=== PATIENT | female | born 1965 | race Hispanic/Latino ===

== ENCOUNTER 2017-04-07 06:22 | Observation (INO) | payer OTHER, MEDICARE ==
[2017-04-07] MEDS ORDERED: Sodium Chloride 0.9% 500 ML IV STA (07:37)
--- NOTE | 2017-04-07 07:46 | ED PDOC ---
HPI: General Adult Time Seen by Provider: 04/07/17 07:21 Chief Complaint (Nursing): Pain, Chronic Chief Complaint (Provider): Chronic RSD evaluation History Per: Patient History/Exam Limitations: no limitations Onset/Duration Of Symptoms: Days (chronic) Additional Complaint(s): Renae Hays is a 51 year old female with a past medical history of RSD referred to the ED by Dr. Oliveira for an evaluation of chronic pain experienced to bilateral lower extremities. She states meeting Dr. Oliveira at [facility] who attempted to admit the patient into the ICU, but was unable to and therefore referred the patient to present to the ED today. The patient states she has been experiencing chronic pain to her bilateral lower extremities associated with swelling. She reports the swelling has decreased this week prior to her visit. PMD: Romaine Harrell MD Past Medical History Reviewed: Historical Data, Nursing Documentation, Vital Signs Vital Signs: Last Vital Signs Temp 98.1 F 04/07/17 06:34 Pulse 74 04/07/17 06:34 Resp 17 04/07/17 06:34 BP 120/73 04/07/17 06:34 Pulse Ox 98 04/07/17 07:49 - Medical History PMH: Anxiety Other PMH: RSD - Surgical History Surgical History: Cholecystectomy, Tonsillectomy - Family History Family History: States: No Known Family Hx - Social History Current smoker - smoking cessation education provided: No Ex-Smoker (has not smoked in the last 12 months): No Alcohol: None Drugs: Denies - Home Medications Home Medications: Ambulatory Orders Medication Instructions Recorded Alprazolam [Xanax] 0.5 mg PO Q8H 04/07/17 Aspirin [Ecotrin] 81 mg PO DAILY 04/07/17 Docusate [Colace] 250 mg PO DAILY 04/07/17 Methadone [Methadone HCl] 90 mg PO Q6H 04/07/17 Ondansetron HCl [Zofran] 8 mg PO Q8H PRN 04/07/17 Oxycodone HCl/Acetaminophen 1 tab PO Q8H 04/07/17 [Percocet 7.5-325 mg Tablet] Roxicet 15 mg PO DAILY PRN 04/07/17 Vitamin E Acetate [Vitamin E] 5,000 unit PO DAILY 04/07/17 Zolpidem [Ambien] 10 mg PO HS 04/07/17 diaZEpam [Valium] 10 mg PO Q8H 04/07/17 - Allergies Allergies/Adverse Reactions: Allergies Allergy/AdvReac Type Severity Reaction Status Date / Time amoxicillin [From Augmentin] Allergy Mild hives Verified 04/07/17 06:39 clavulanic acid Allergy Mild hives Verified 04/07/17 06:39 [From Augmentin] gabapentin [From Neurontin] Allergy Mild RASH Verified 04/07/17 06:40 hydromorphone [From Dilaudid] Allergy Mild RASH Verified 04/07/17 07:40 vancomycin Allergy Mild RASH Verified 04/07/17 06:41 morphine Allergy RASH Verified 04/07/17 07:41 Review of Systems ROS Statement: Except As Marked, All Systems Reviewed And Found Negative Musculoskeletal: Positive for: Leg Pain (bilateral lower extremity pain and swelling) Physical Exam - Reviewed Nursing Documentation Reviewed: Yes Vital Signs Reviewed: Yes - Physical Exam Appears: Positive for: Non-toxic, No Acute Distress Head Exam: Positive for: ATRAUMATIC, NORMOCEPHALIC Skin: Positive for: Normal Color, Warm, Dry Eye Exam: Positive for: Normal appearance, EOMI, PERRL ENT: Positive for: Normal ENT Inspection Neck: Positive for: Normal, Painless ROM Cardiovascular/Chest: Positive for: Regular Rate, Rhythm, Chest Non Tender Respiratory: Positive for: Normal Breath Sounds. Negative for: Respiratory Distress Gastrointestinal/Abdominal: Positive for: Normal Exam, Soft. Negative for: Tenderness Back: Positive for: Normal Inspection Extremity: Positive for: Tenderness (to bilateral lower extremities with mild touch) Neurologic/Psych: Positive for: Alert, Oriented (x3). Negative for: Motor/ Sensory Deficits - ECG O2 Sat by Pulse Oximetry: 98 (RA) Pulse Ox Interpretation: Normal Medical Decision Making Medical Decision Making: Time: 07:21 Impression: Chronic RSD evaluation Plan: * CMP * Troponin I * CBC (With differential) * Partial Thromboplastin Time * Prothrombin Time * PICC Vascular * NS 500 ml IV 100 mls/hr * Reevaluation 07:30: Spoke with Dr. Garnett. Karyn pt. admitted to ICU for ketamine infusion. 07:[address] Dejesus. Is aware and will admit patient. 0852: Spoke with Dr. Hicks. Will admit ICU. Scribe Attestation: Documented by Carmen Zamora, acting as a scribe for Venkatesh Rodriguez MD. Provider Scribe Attestation: All medical record entries made by the Scribe were at my direction and personally dictated by me. I have reviewed the chart and agree that the record accurately reflects my personal performance of the history, physical exam, medical decision making, and the department course for this patient. I have also personally directed, reviewed, and agree with the discharge instructions and disposition. Disposition - Clinical Impression Clinical Impression: Chronic pain - Patient ED Disposition Is Patient to be Admitted: Yes - Disposition Disposition Time: 08:52 Condition: FAIR - Pt Status Changed To: Hospital Disposition Of: Inpatient - Admit Certification Admit to Inpatient:: After my assessment, the patient will require hospitalization for at least two midnights. This is because of the severity of symptoms shown, intensity of services needed, and/or the medical risk in this patient being treated as an outpatient. - POA Present On Arrival: None
--- NOTE | 2017-04-07 09:10 | PCM.SURG1 ---
Surgeon's Initial Post Op Note - Surgeon's Notes Surgeon: Kolby Camarillo MD Station Captain: NONE Type of Anesthesia: Local Pre-Operative Diagnosis: Poor venous access Operative Findings: Patent right basilic vein. Post-Operative Diagnosis: Poor venous access Operation Performed: Single lumen picc placement, right basilic vein, 35 cm. Tip is in the SVC. Specimen/Specimens Removed: None Estimated Blood Loss: EBL {In ML}: 2 Blood Products Given: N/A Drains Used: No Drains Post-Op Condition: Fair Date of Surgery/Procedure: 04/07/17 Time of Surgery/Procedure: 09:25
[2017-04-07] MEDS ORDERED: Lidocaine 1% Inj (20ml) ONE (09:13)
[2017-04-07] MEDS ORDERED: Iodixanol 320 mg/ml 50 ml Sol IV ONE ×2 (09:27→09:30)
[2017-04-07 10:38] LABS: BASO % 0.6 % (0.0-2.0); EOS # 0.2 K/uL (0.0-0.7); EOS % 2.7 % (0.0-4.0); HEMATOCRIT 36.3 % (34.0-47.0); LYMPH # 2.6 K/uL (1.0-4.3); LYMPH % 43.5 % (20.0-40.0); MEAN CELL VOLUME 84.2 fl (81.0-99.0); MEAN CORPUSCULAR HEMOGLOBIN 27.1 pg (27.0-31.0); MEAN CORPUSCULAR HGB CONC 32.2 g/dL (33.0-37.0); MEAN PLATELET VOLUME 7.9 fl (7.2-11.7); MONO # 0.7 K/uL (0.0-0.8); NEUT # 2.4 K/uL (1.8-7.0); NEUT % 41.2 % (50.0-75.0); RED CELL DISTRIBUTION WIDTH 14.9 % (11.5-14.5); WHITE BLOOD COUNT 5.9 K/uL (4.8-10.8)
[2017-04-07 10:45] LABS: ALB/GLOB RATIO 1.3 (1.0-2.1); ALKALINE PHOSPHATASE 105 U/L (38-126); ALT/SGPT 36 U/L (9-52); AST/SGOT 44 U/L (14-36); BILIRUBIN,TOTAL 0.4 mg/dl (0.2-1.3); BLOOD UREA NITROGEN 9 mg/dl (7-17); CALCIUM 8.8 mg/dL (8.4-10.2); CARBON DIOXIDE 31 mmol/L (22-30); CHLORIDE 103 mmol/L (98-107); GFR AFRICAN-AMERICAN > 60; GLUCOSE,RANDOM 79 mg/dL (65-105); PARTIAL THROMBOPLASTIN TIME 29.6 Seconds (25.6-37.1); POTASSIUM 3.8 MMOL/L (3.6-5.0); SODIUM 141 mmol/l (132-148); TOTAL PROTEIN 6.5 G/DL (6.3-8.2)
[2017-04-07] MEDS ORDERED: Ketamine 50 mg/ml Inj (10 ml) IV ONE (10:45)
--- NOTE | 2017-04-07 13:01 | CP.PCM.CON ---
History of Present Illness - History of Present Illness History of Present Illness: Mrs. Hays is a 51-year-old woman with a past medical history of multiple spinal surgeries and peripheral orthopedic surgeries as a result of a previous injury, who subsequently developed complex regional pain syndrome type 1 (CRPS-1). She has been sustained on methadone, multiple doses of IR opiates and benzodiazepines to control her pain. She had an attack of CRPS about two weeks ago and now has difficulty with ambulation and straightening her back. She complains of severe pain and would like to avoid using high dose opiates due to concern for respiratory suppression. Review of Systems - Review of Systems All systems: reviewed and no additional remarkable complaints except Past Patient History - Past Social History Alcohol: None Drugs: Denies - NEUROLOGICAL Hx Neurological Disorder: Yes - MUSCULOSKELETAL/RHEUMATOLOGICAL Hx Musculoskeletal Disorders: Yes - PSYCHIATRIC Hx Anxiety: Yes - SURGICAL HISTORY Hx Cholecystectomy: Yes Hx Tonsillectomy: Yes Meds Allergies/Adverse Reactions: Allergies Allergy/AdvReac Type Severity Reaction Status Date / Time amoxicillin [From Augmentin] Allergy Mild hives Verified 04/07/17 06:39 clavulanic acid Allergy Mild hives Verified 04/07/17 06:39 [From Augmentin] gabapentin [From Neurontin] Allergy Mild RASH Verified 04/07/17 06:40 vancomycin Allergy Mild RASH Verified 04/07/17 06:41 morphine Allergy RASH Verified 04/07/17 07:41 - Medications Medications: Current Medications Ketamine HCl 100 mg/ Sodium (Chloride) 102 mls @ 3.29 mls/hr IVPB ONCE ONE Stop: 04/08/17 18:00 Last Admin: 04/07/17 12:05 Dose: 3.29 mls/hr Physical Exam - Constitutional Appears: Well - Head Exam Head Exam: ATRAUMATIC, NORMAL INSPECTION, NORMOCEPHALIC - Eye Exam Eye Exam: EOMI, Normal appearance, PERRL - ENT Exam ENT Exam: Mucous Membranes Moist, Normal Exam - Neck Exam Neck exam: Positive for: Normal Inspection - Respiratory Exam Respiratory Exam: NORMAL BREATHING PATTERN - Cardiovascular Exam Cardiovascular Exam: REGULAR RHYTHM, +S1, +S2 - GI/Abdominal Exam GI & Abdominal Exam: Normal Bowel Sounds, Soft. absent: Tenderness - Rectal Exam Rectal Exam: Deferred - Extremities Exam Extremities exam: Positive for: calf tenderness, joint swelling, pedal edema, tenderness - Neurological Exam Neurological exam: Abnormal Gait, Alert, CN II-XII Intact, Oriented x3, Reflexes Normal - Expanded Neurological Exam Expanded Patient oriented to: person, place, time Cranial nerves: EOM's Intact: Normal, Facial Palsey w/o Forehead Movement: Normal, Nystagmus: Normal Ataxia: No Cerebellar Function: Finger to Nose: Normal, Heel to Lin: Abnormal Left, Abnormal Right (limited by pain) Upper motor neuron: Babinski Sign: Normal Sensory exam: Lower Extremity Light Touch: Abnormal Left, Abnormal Right ( allodynia), Lower Extremity Pin Prick: Abnormal Left, Abnormal Right (allodynia) , Upper Extremity Light Touch: Abnormal Left, Abnormal Right (allodynia), Upper Extremity Pin Prick: Abnormal Left, Abnormal Right (allodynia) Neuro motor strength exam: Left Upper Extremity: 5, Right Upper Extremity: 5, Left Lower Extremity: 4, Right Lower Extremity: 4 DTR: Bicep Left: 2+, Bicep Right: 2+, Patellar Left: 2+, Patellar Right: 2+ - Psychiatric Exam Psychiatric exam: Normal Affect, Normal Mood - Skin Skin Exam: Erythema Results - Vital Signs Recent Vital Signs: Last Vital Signs Temp 98.0 F 04/07/17 12:00 Pulse 62 04/07/17 12:52 Resp 13 04/07/17 12:52 BP 136/69 04/07/17 12:52 Pulse Ox 94 L 04/07/17 12:52 - Labs Result Diagrams: 04/07/17 10:30 04/07/17 10:30 Labs: Laboratory Results - last 24 hr 04/07/17 04/07/17 04/07/17 10:30 10:30 10:30 WBC 5.9 RBC 4.30 Hgb 11.7 L Hct 36.3 MCV 84.2 MCH 27.1 MCHC 32.2 L RDW 14.9 H Plt Count 232 MPV 7.9 Neut % (Auto) 41.2 L Lymph % (Auto) 43.5 H [place] % (Auto) 12.0 H Eos % (Auto) 2.7 Baso % (Auto) 0.6 Neut # 2.4 Lymph # 2.6 [place] # 0.7 Eos # 0.2 Baso # 0.0 PT 10.9 INR 1.0 APTT 29.6 Sodium 141 Potassium 3.8 Chloride 103 Carbon Dioxide 31 H Anion Gap 11 BUN 9 Creatinine 0.8 Est GFR ( Amer) > 60 Est GFR (Non-Af Amer) > 60 Random Glucose 79 Calcium 8.8 Total Bilirubin 0.4 AST 44 H ALT 36 Alkaline Phosphatase 105 Troponin I < 0.0120 Total Protein 6.5 Albumin 3.7 Globulin 2.8 Albumin/Globulin Ratio 1.3 Assessment & Plan (1) Complex regional pain syndrome i of lower limb, bilateral Assessment and Plan: Will start Ketamine infusion at 0.25 mg/kg/hour and titrate up as tolerated without exceeding 1 mg/kg/hour to treat her severe pain. Will attempt to decrease her current opiates. Neuro-check Q1 hours. Fluids, DVT Px. Status: Acute
--- NOTE | 2017-04-07 13:17 | CP.PCM.HP ---
History of Present Illness - History of Present Illness History of Present Illness: CC: Acute Lower Extremities pain. 51 y/o F, with Dx of CRPD stage 1, referred by Dr Oliveira, Neurology, to [facility] to be evaluated for increased chronic pain in her lower extremities for several days, Pt using Oxycodone at home with no relief. Pt was admitted to ICU to be treated with Ketamine infusion. Pt appear to hospital with exacerbation of chronic pain BLE , pain is of severe intensity 8:10, with burning sensation and swelling, 2nd to multiple orthopedic surgeries (43, stated by PT), from injury/trauma. Worsening symptoms of Lower back pain of moderate intensity 6:10 radiated to thigh. Aggravated factor: Difficulty ambulation and straightening of her back. Pt denied: Fever, chills, n/v/d, abdominal pain, urinary symptoms, CP, palpitation, SOB, cough, dizziness, LOC, syncope, sick contact, recent travel. PMHx: CRPD stage 1 2nd to: B/L foot reconstruction, 14 knee surgeries including 3 L TKR, 1 R THR, Lumbar sx 13 times, 2 L shoulder and 1 R shoulder sx. Also Hx of Lab Ramón; Gastric bypass 2012. Hx of Constipation, Anxiety, Insomnia. Present on Admission - Present on Admission Any Indicators Present on Admission: No Review of Systems - Constitutional Constitutional: Other (negative) - EENT Eyes: Other (negative) Ears: Other (negative) Nose/Mouth/Throat: Other (negative) - Cardiovascular Cardiovascular: Leg Edema - Respiratory Respiratory: Other (negative) - Gastrointestinal Gastrointestinal: Other (negative) - Genitourinary Genitourinary: Other (negative) - Musculoskeletal Musculoskeletal: As Per HPI, Back Pain, Radiating Pain into Limb - Integumentary Integumentary: Swelling (Lower extremities) - Neurological Neurological: Other (negative) - Psychiatric Psychiatric: Anxiety - Endocrine Endocrine: Other (negative) - Hematologic/Lymphatic Hematologic: Other (negative) Past Patient History - Past Medical History & Family History Pertinent Family History: Unknown - Past Social History Smoking Status: Never Smoked Alcohol: None Drugs: Denies Home Situation {Lives}: With Family - CARDIAC Hx Cardiac Disorders: No - PULMONARY Hx Respiratory Disorders: No - NEUROLOGICAL Hx Neurological Disorder: No - HEENT Hx HEENT Problems: No - RENAL Hx Chronic Kidney Disease: No - ENDOCRINE/METABOLIC Hx Endocrine Disorders: No - HEMATOLOGICAL/ONCOLOGICAL Hx Blood Disorders: No - INTEGUMENTARY Hx Dermatological Problems: No - MUSCULOSKELETAL/RHEUMATOLOGICAL Hx Musculoskeletal Disorders: Yes (CRPD from orthopedic sx.) Hx Back Pain: Yes - GASTROINTESTINAL Hx Clostridium Difficile: No - GENITOURINARY/GYNECOLOGICAL Hx Genitourinary Disorders: No - PSYCHIATRIC Hx Psychophysiologic Disorder: Yes (Insomnia.) Hx Anxiety: Yes - SURGICAL HISTORY Hx Surgeries: Yes Hx Cholecystectomy: Yes Hx Gastric Bypass Surgery: Yes Hx Joint Replacement: Yes (L Knee, R Hip) Hx Orthopedic Surgery: Yes (L knee, R hip, shoulders b/l, foot b/l, ) Hx Tonsillectomy: Yes - ANESTHESIA Hx Anesthesia: Yes Hx Anesthesia Reactions: No Meds Allergies/Adverse Reactions: Allergies Allergy/AdvReac Type Severity Reaction Status Date / Time amoxicillin [From Augmentin] Allergy Mild hives Verified 04/07/17 06:39 clavulanic acid Allergy Mild hives Verified 04/07/17 06:39 [From Augmentin] gabapentin [From Neurontin] Allergy Mild RASH Verified 04/07/17 06:40 vancomycin Allergy Mild RASH Verified 04/07/17 06:41 morphine Allergy RASH Verified 04/07/17 07:41 Physical Exam - Constitutional Appears: No Acute Distress - Head Exam Head Exam: NORMAL INSPECTION - Eye Exam Eye Exam: PERRL - ENT Exam ENT Exam: Normal Exam - Neck Exam Neck exam: Positive for: Normal Inspection - Respiratory Exam Respiratory Exam: Clear to Auscultation Bilateral - Cardiovascular Exam Cardiovascular Exam: REGULAR RHYTHM - GI/Abdominal Exam GI & Abdominal Exam: Normal Bowel Sounds, Soft - Extremities Exam Extremities exam: Positive for: pedal edema, tenderness (very tenderness on touch to b/l lower extremities.) Additional comments: R Arm PICC line. Healed scar: b/l foot, L knee, R hip. - Back Exam Back exam: NORMAL INSPECTION - Neurological Exam Neurological exam: Alert, Oriented x3 - Psychiatric Exam Psychiatric exam: Anxious - Skin Skin Exam: Warm Results - Vital Signs Recent Vital Signs: Last Vital Signs Temp 98.0 F 04/07/17 12:00 Pulse 62 04/07/17 12:52 Resp 13 04/07/17 12:52 BP 136/69 04/07/17 12:52 Pulse Ox 94 L 04/07/17 12:52 reviewed J.P. - Labs Result Diagrams: 04/07/17 10:30 04/07/17 10:30 Labs: Laboratory Results - last 24 hr 04/07/17 04/07/17 04/07/17 10:30 10:30 10:30 WBC 5.9 RBC 4.30 Hgb 11.7 L Hct 36.3 MCV 84.2 MCH 27.1 MCHC 32.2 L RDW 14.9 H Plt Count 232 MPV 7.9 Neut % (Auto) 41.2 L Lymph % (Auto) 43.5 H [place] % (Auto) 12.0 H Eos % (Auto) 2.7 Baso % (Auto) 0.6 Neut # 2.4 Lymph # 2.6 [place] # 0.7 Eos # 0.2 Baso # 0.0 PT 10.9 INR 1.0 APTT 29.6 Sodium 141 Potassium 3.8 Chloride 103 Carbon Dioxide 31 H Anion Gap 11 BUN 9 Creatinine 0.8 Est GFR ( Amer) > 60 Est GFR (Non-Af Amer) > 60 Random Glucose 79 Calcium 8.8 Total Bilirubin 0.4 AST 44 H ALT 36 Alkaline Phosphatase 105 Troponin I < 0.0120 Total Protein 6.5 Albumin 3.7 Globulin 2.8 Albumin/Globulin Ratio 1.3 reviewed J.P. Assessment & Plan (1) Complex regional pain syndrome i of lower limb, bilateral Status: Acute Priority: High (2) Controlled drug dependence Status: Acute Priority: High - Assessment and Plan (Free Text) Plan: EKG, CXR, Pt on Methadone, for Ketamine infusion today. ICU time: 60 minutes. - Date & Time Date: 04/07/17 Time: 11:00
--- NOTE | 2017-04-07 13:40 | VASCULAR ---
PROCEDURE: Date of procedure: 04/07/2017 Procedure: 1. Placement of a right arm PICC with ultrasound and fluoroscopic guidance, CPT 42029 2. PICC tip confirmation with spot radiograph and is in the superior vena cava Medications: 1 percent lidocaine Total Fluoro time: 20.1 seconds Radiation: 1.40 MGy EBL: 2 cc HISTORY: Poor venous access TECHNIQUE: Following informed consent and procedure time-out, the patient was placed supine on the interventional table and the right arm prepped and draped in the usual sterile fashion. Ultrasound showed a patent and compressible right basilic vein. After the skin was anesthetized with lidocaine, the basilic vein was accessed with micro micropuncture technique using ultrasound guidance. A guidewire was then advanced under fluoroscopic guidance into the superior vena cava. An image documenting ultrasound guidance for vascular access was permanently saved. The length of the single-lumen 4 [place] PICC was trimmed to 35 centimeters and advanced through a peel-away sheath. The PICC was position with tip of PICC confirm a spot radiograph the superior vena cava. The PICC was secured to the patient's skin. The PICC was flushed. A biopatch and sterile dressing was applied. IMPRESSION: Placement of a single-lumen 4 [place] PICC trimmed to 35 centimeters via right basilic vein. The tip of the PICC is confirmed with spot radiograph and is in the superior vena cava.
--- NOTE | 2017-04-07 14:31 | CP.CCUPN ---
CCU Subjective - Physician Review Subjective (Free Text): ICU admission and consultation: 51F with PMH of multiple complex surgeries (Total 43) involving LS spine, Knees and Left Hip resulting in residual chronic pain syndrome, RSD, and now dependent on multiple narcotic analgesics and has persistent pain issues, seen by Neurology and admitted to ICU for trial of IV Ketamine therapy in an attempt to treat and alleviate present pain episodes and to decrease narcotic usage / dependency. Single-Lumen RUE PICC placed by IR to facilitate IV ketamine infusion to poor peripheral IV access. Other vitals and I/O's reviewed. ALLERGIES: Pen, Amoxil with clavulanate, Vanco, Gabapentin, Morphine Home meds: Xanax, ASA, Colace, Methadone, Percocet, Roxicet, Ambien ROS: No other pertinent negs or positives on 10+ system review. PMSFH: All Nursing and physician documentation reviewed to date; no new pertinent info noted relevant to current medical problems. EKG: none CXR: none MAJOR PROBLEMS: 1. Chronic Pain syndrome due to multiple past surgical procedures 2. Narcotic / Opiate dependency PLAN: 1. IV Ketamine protocol as per Neurology at approx. 10-25% of anesthetic Ketamine dose level. Initial ordered dose of 20mg IV infusion over a 4-6 hour period. 2. Telemetry monitoring appropriate for now, unless ongoing co-administration of outpatient narcotic regimen is considered, then this would prompt upgrade to ICU to monitor airway and hemodynamics. Also monitor for any deleterious euphoric effects from Ketamine. CCU Objective - Vital Signs / Intake & Output Vital Signs (Last 4 hours): Vital Signs Temp Pulse Resp BP Pulse Ox 04/07/17 12:52 62 13 136/69 94 L 04/07/17 12:00 98.0 F 77 14 136/69 95 04/07/17 10:51 98.1 F 71 17 137/84 98 Intake and Output (Last 8hrs): Intake & Output 04/06/17 04/07/17 04/07/17 22:59 06:59 14:59 Weight 174 lb - Physical Exam Head: Positive for: Normocephalic Pupils: Positive for: PERRL Extroacular Muscles: Positive for: EOMI Conjunctiva: Positive for: Normal. Negative for: Icteric Mouth: Positive for: Moist Mucous Membranes Neck: Negative for: JVD, Lymphadenopathy Respiratory/Chest: Positive for: Clear to Auscultation Cardiovascular: Positive for: Regular Rate and Rhythm. Negative for: Murmurs, Rub Abdomen: Positive for: Normal Bowel Sounds. Negative for: Tenderness, Distention Upper Extremity: Positive for: Edema Lower Extremity: Positive for: Edema, NORMAL PULSES. Negative for: CALF TENDERNESS, Cyanosis Neurological: Positive for: GCS=15, CN II-XII Intact, Motor Func Grossly Intact , Normal Sensory Function Skin: Positive for: Warm. Negative for: Rashes - Medications Active Medications: Active Medications Generic Name Dose Route Start Last Admin Trade Name Freq PRN Reason Stop Dose Admin Aspirin 81 mg 04/07/17 13:15 Ecotrin PO DAILY ANTHONY Diazepam 2 mg 04/07/17 13:02 Valium PO TID PRN Anxiety Ketamine HCl 100 mg/ Sodium 102 mls @ 3.29 mls/hr 04/07/17 11:00 04/07/17 12: 05 Chloride IVPB 04/08/17 18:00 3.29 mls/hr ONCE ONE Administration Methadone HCl 10 mg 04/07/17 17:00 Methadone PO Q8 ANTHONY Oxycodone/Acetaminophen 1 tab 04/07/17 13:02 Percocet 5/325 Mg Tab PO 04/10/17 13:03 Q6 PRN breakthrough pain - Patient Studies Lab Studies: Lab Studies 04/07/17 04/07/17 04/07/17 Range/Units 10:30 10:30 10:30 WBC 5.9 (4.8-10.8) K/uL RBC 4.30 (3.80-5.20) Mil/uL Hgb 11.7 L (12.0-16.0) g/dL Hct 36.3 (34.0-47.0) % MCV 84.2 (81.0-99.0) fl MCH 27.1 (27.0-31.0) pg MCHC 32.2 L (33.0-37.0) g/dL RDW 14.9 H (11.5-14.5) % Plt Count 232 (130-400) K/uL MPV 7.9 (7.2-11.7) fl Neut % (Auto) 41.2 L (50.0-75.0) % Lymph % (Auto) 43.5 H (20.0-40.0) % [place] % (Auto) 12.0 H (0.0-10.0) % Eos % (Auto) 2.7 (0.0-4.0) % Baso % (Auto) 0.6 (0.0-2.0) % Neut # 2.4 (1.8-7.0) K/uL Lymph # 2.6 (1.0-4.3) K/uL [place] # 0.7 (0.0-0.8) K/uL Eos # 0.2 (0.0-0.7) K/uL Baso # 0.0 (0.0-0.2) K/uL PT 10.9 (9.8-13.1) Seconds INR 1.0 (0.9-1.2) APTT 29.6 (25.6-37.1) Seconds Sodium 141 (132-148) mmol/l Potassium 3.8 (3.6-5.0) MMOL/L Chloride 103 (98-107) mmol/L Carbon Dioxide 31 H (22-30) mmol/L Anion Gap 11 (10-20) BUN 9 (7-17) mg/dl Creatinine 0.8 (0.7-1.2) mg/dL Est GFR ( Amer) > 60 Est GFR (Non-Af Amer) > 60 Random Glucose 79 (65-105) mg/dL Calcium 8.8 (8.4-10.2) mg/dL Total Bilirubin 0.4 (0.2-1.3) mg/dl AST 44 H (14-36) U/L ALT 36 (9-52) U/L Alkaline Phosphatase 105 (38-126) U/L Troponin I < 0.0120 (0.00-0.120) ng/mL Total Protein 6.5 (6.3-8.2) G/DL Albumin 3.7 (3.5-5.0) g/dL Globulin 2.8 (2.2-3.9) gm/dL Albumin/Globulin Ratio 1.3 (1.0-2.1) Laboratory Results - last 24 hr 04/07/17 04/07/17 04/07/17 10:30 10:30 10:30 WBC 5.9 RBC 4.30 Hgb 11.7 L Hct 36.3 MCV 84.2 MCH 27.1 MCHC 32.2 L RDW 14.9 H Plt Count 232 MPV 7.9 Neut % (Auto) 41.2 L Lymph % (Auto) 43.5 H [place] % (Auto) 12.0 H Eos % (Auto) 2.7 Baso % (Auto) 0.6 Neut # 2.4 Lymph # 2.6 [place] # 0.7 Eos # 0.2 Baso # 0.0 PT 10.9 INR 1.0 APTT 29.6 Sodium 141 Potassium 3.8 Chloride 103 Carbon Dioxide 31 H Anion Gap 11 BUN 9 Creatinine 0.8 Est GFR ( Amer) > 60 Est GFR (Non-Af Amer) > 60 Random Glucose 79 Calcium 8.8 Total Bilirubin 0.4 AST 44 H ALT 36 Alkaline Phosphatase 105 Troponin I < 0.0120 Total Protein 6.5 Albumin 3.7 Globulin 2.8 Albumin/Globulin Ratio 1.3 Review of Systems - Review of Systems All systems: reviewed and no additional remarkable complaints except (needs cane for ambulation, + groin spasms bilaterally.) Critical Care Progress Note - Nutrition Nutrition: Nutrition Category Date Time Status Regular Diet [DIET] Diets 04/07/17 Lunch Active
[2017-04-07] MEDS: Oxycodone/Acetaminophen 5/325 mg Tab PO PRN (22:53)
[2017-04-07] MEDS ORDERED: DiphenhydrAMINE 50 mg/ml Inj IVP ONE (23:00)
[2017-04-08 05:02] LABS: MEAN CELL VOLUME 84.2 fl (81.0-99.0); MEAN CORPUSCULAR HEMOGLOBIN 27.5 pg (27.0-31.0); MEAN CORPUSCULAR HGB CONC 32.6 g/dL (33.0-37.0); RED CELL DISTRIBUTION WIDTH 15.1 % (11.5-14.5); WHITE BLOOD COUNT 5.5 K/uL (4.8-10.8)
[2017-04-08 05:11] LABS: BLOOD UREA NITROGEN 8 mg/dl (7-17); CALCIUM 9.4 mg/dL (8.4-10.2); CARBON DIOXIDE 32 mmol/L (22-30); CHLORIDE 103 mmol/L (98-107); GFR AFRICAN-AMERICAN > 60; GLUCOSE,RANDOM 88 mg/dL (65-105); POTASSIUM 4.7 MMOL/L (3.6-5.0); SODIUM 144 mmol/l (132-148)
[2017-04-08] MEDS: Oxycodone/Acetaminophen 5/325 mg Tab PO PRN (08:12)
--- NOTE | 2017-04-08 08:35 | CP.PCM.PN ---
Subjective - Date & Time of Evaluation Date of Evaluation: 04/08/17 Time of Evaluation: 08:29 - Subjective Subjective: Ms. Hays was seen and examined at the bedside. She is alert with complains of severe back pain in the lumbar area radiating to the sacral area. She further describe the pain as squeezing and repositioning or ambulation does not help alleviate the pain. She further states of laying down aggravates the pain. She is restless in bed. She further claims that her bilateral lower extremities are burning, but states that it is 20 % better in comparison from yesterday. Her bilateral lower extremities are elevated using 2 pillows. Her bilateral lower extremities are red and warm. At present her CO2 level is 32. Objective - Vital Signs/Intake and Output Vital Signs (last 24 hours): Temp Pulse Resp BP Pulse Ox 97.6 F 56 L 13 93/50 L 95 04/08/17 05:00 04/08/17 06:00 04/08/17 06:00 04/08/17 06:00 04/08/17 06:00 Intake and Output: 04/08/17 04/08/17 06:59 18:59 Intake Total 0 Balance 0 - Medications Medications: Current Medications Aspirin (Ecotrin) 81 mg PO DAILY [facility] Last Admin: 04/08/17 08:17 Dose: 81 mg Diazepam (Valium) 5 mg PO TID PRN PRN Reason: Anxiety Last Admin: 04/07/17 23:08 Dose: 5 mg Enoxaparin Sodium (Lovenox) 40 mg SC DAILY [facility] PRN Reason: Protocol Last Admin: 04/08/17 08:16 Dose: 40 mg Ketamine HCl 100 mg/ Sodium (Chloride) 102 mls @ 3.29 mls/hr IVPB ONCE ONE Stop: 04/08/17 18:00 Methadone HCl (Methadone) 10 mg PO Q8 [facility] Last Admin: 04/08/17 08:15 Dose: 10 mg Oxycodone/Acetaminophen (Percocet 5/325 Mg Tab) 1 tab PO Q6 PRN PRN Reason: breakthrough pain Stop: 04/10/17 13:03 Last Admin: 04/08/17 08:12 Dose: 1 tab - Labs Labs: 04/08/17 04:20 04/08/17 04:20 PT 10.9 Seconds (9.8-13.1) 04/07/17 10:30 INR 1.0 (0.9-1.2) 04/07/17 10:30 APTT 29.6 Seconds (25.6-37.1) 04/07/17 10:30 - Constitutional Appears: No Acute Distress, Agitated - Head Exam Head Exam: ATRAUMATIC, NORMAL INSPECTION, NORMOCEPHALIC - Neurological Exam Neurological Exam: Alert, Awake, CN II-XII Intact, Normal Gait, Oriented x3 Neuro motor strength exam: Left Upper Extremity: 5, Right Upper Extremity: 5, Left Lower Extremity: 5, Right Lower Extremity: 5 Additional comments: She ambulates with a cane. She is able to answer questions appropriately and follow commands. Assessment and Plan (1) Complex regional pain syndrome i of lower limb, bilateral Assessment & Plan: Case discussed with Dr. Garnett, will resume all her home pain medications and can be discharge today. Single PICC in the right arm needs to be discontinue prior to discharge. She will have to follow up with her pain management team forall her opiates and to make an appointment with Dr. Garnett [phone] [place] [address]. [facility] [address].in a month. We will attempt another Ketamine drip infusion in 6 weeks. Status: Acute
[2017-04-08] MEDS ORDERED: Enoxaparin 40 mg Syringe SC SCH (09:00)
[2017-04-08] MEDS ORDERED: Pantoprazole 40 mg EC Tab PO SCH (09:00)
[2017-04-08] MEDS ORDERED: Oxycodone/Acetaminophen 5/325 mg Tab PO SCH (09:00)
--- NOTE | 2017-04-08 09:12 | RAD ---
PROCEDURE: CHEST RADIOGRAPH, 1 VIEW HISTORY: chronic pain COMPARISON: None available. FINDINGS: LUNGS: Clear. PLEURA: No pneumothorax or pleural fluid seen. CARDIOVASCULAR: Normal heart size. Right PICC catheter terminates in the region of the superior vena cava. OSSEOUS STRUCTURES: No significant abnormalities. VISUALIZED UPPER ABDOMEN: Normal. OTHER FINDINGS: None. IMPRESSION: No acute infiltrate. Right PICC catheter.
--- NOTE | 2017-04-08 10:18 | CARD ---
APPROVED REPORT EKG Measurement Heart [id number] CT [id number] <Conclusion> Sinus bradycardia Otherwise normal ECG
[2017-04-08 14:00] VITALS: BP 98/63; PULSE 52; RESP 12; TEMP 98.6; O2SAT 100
--- NOTE | 2017-04-08 15:35 | CP.PCM.PN ---
Subjective - Date & Time of Evaluation Date of Evaluation: 04/08/17 Time of Evaluation: 09:45 - Subjective Subjective: F/U CRPS. Pain in the R-L legs improved. Objective - Vital Signs/Intake and Output Vital Signs (last 24 hours): Temp Pulse Resp BP Pulse Ox 98.6 F 52 L 12 98/63 L 100 04/08/17 13:00 04/08/17 13:00 04/08/17 13:00 04/08/17 13:00 04/08/17 13:00 Intake and Output: 04/08/17 04/08/17 06:59 18:59 Intake Total 0 200 Balance 0 200 - Medications Medications: Current Medications Alprazolam (Xanax) 0.5 mg PO Q8 PRN PRN Reason: Anxiety Aspirin (Ecotrin) 81 mg PO DAILY [facility] Last Admin: 04/08/17 08:17 Dose: 81 mg Docusate Sodium (Colace) 200 mg PO DAILY [facility] Last Admin: 04/08/17 09:52 Dose: Not Given Enoxaparin Sodium (Lovenox) 40 mg SC DAILY [facility] PRN Reason: Protocol Last Admin: 04/08/17 08:16 Dose: 40 mg Ketamine HCl 100 mg/ Sodium (Chloride) 102 mls @ 3.29 mls/hr IVPB ONCE ONE Stop: 04/08/17 18:00 Methadone HCl (Methadone) 10 mg PO DAILY [facility] Last Admin: 04/08/17 11:58 Dose: Not Given Ondansetron HCl (Zofran Tab) 8 mg PO Q8 PRN PRN Reason: Nausea/Vomiting Oxycodone/Acetaminophen (Percocet 5/325 Mg Tab) 1 tab PO Q8 [facility] Stop: 04/11/17 09:01 Last Admin: 04/08/17 09:48 Dose: Not Given Pantoprazole Sodium (Protonix Ec Tab) 40 mg PO DAILY [facility] Last Admin: 04/08/17 09:46 Dose: 40 mg Vitamin E (Vitamin E 400 Units Cap) 400 intlu PO DAILY [facility] Last Admin: 04/08/17 12:00 Dose: 400 intlu Zolpidem Tartrate (Ambien) 5 mg PO HS [facility] - Labs Labs: 04/08/17 04:20 04/08/17 04:20 PT 10.9 Seconds (9.8-13.1) 04/07/17 10:30 INR 1.0 (0.9-1.2) 04/07/17 10:30 APTT 29.6 Seconds (25.6-37.1) 04/07/17 10:30 - Constitutional Appears: No Acute Distress - Head Exam Head Exam: NORMAL INSPECTION - Eye Exam Eye Exam: PERRL - ENT Exam ENT Exam: Normal Exam - Neck Exam Neck Exam: Normal Inspection - Respiratory Exam Respiratory Exam: Clear to Ausculation Bilateral - Cardiovascular Exam Cardiovascular Exam: REGULAR RHYTHM - GI/Abdominal Exam GI & Abdominal Exam: Soft, Normal Bowel Sounds - Extremities Exam Extremities Exam: Pedal Edema, Tenderness (less on touch to b/l L/E ) Additional comments: R arm PICC line in place. Healed scar: B/L foot, L hip, R knee. - Back Exam Back Exam: NORMAL INSPECTION - Neurological Exam Neurological Exam: Alert, Oriented x3 - Psychiatric Exam Psychiatric exam: Anxious - Skin Skin Exam: Warm Assessment and Plan (1) Complex regional pain syndrome i of lower limb, bilateral Status: Acute (2) Controlled drug dependence Status: Acute - Assessment and Plan (Free Text) Plan: Pt cleared by Neurology learning and development consultant to be discharged today, continue previous medications at home, f/u with PMD and with Neurology as out Pt.
== END 2017-04-08 16:00 | disposition home or self-care (01) ==
LOC: H.ER 06:22 → INTOOBSV 08:09 → H.ERHOLD 08:09 → H.ICU/CCU 11:08
PROVIDERS: ADMIT Internal Medicine Pulmonary Disease; ATTEND Internal Medicine Pulmonary Disease
DX: G90.523 Complex regional pain syndrome I of lower limb, bilateral (principal); F11.20 Opioid dependence, uncomplicated; Z88.0 Allergy status to penicillin; Z88.1 Allergy status to other antibiotic agents; Z88.5 Allergy status to narcotic agent; Z98.84 Bariatric surgery status; Z96.652 Presence of left artificial knee joint; Z96.641 Presence of right artificial hip joint
CPT/HCPCS: 36569; 71010; 76937; 80048; 80053; 81025; 84484; 85025; 85027; 85610; 85730; 87081; 93005; 99285; A4310; C1751; G0378; J1200; J1650; J7040; Q9967